=== PATIENT | female | born 1950 | race Caucasian/White ===

== ENCOUNTER 2018-10-11 16:56 | Emergency (ER) | payer MEDICARE, OTHER ==
[~2018-10-11] VITALS: Ht 160 cm; Wt 86.2 kg
[~2018-10-11 16:56] MED LIST: CELEXA 20 MG TA20 M1 PO
[2018-10-11] MEDS ORDERED: MUPIROCIN15 GM TOP (17:42)
[2018-10-11] MEDS ORDERED: KEFLEX500 M1 PO (17:42)
[2018-10-11 18:07] VITALS: BP 133/87
== END 2018-10-11 18:08 | disposition home or self-care (01) ==
LOC: M.ERS 16:56
DX: L02.416 Cutaneous abscess of left lower limb (principal); Z90.49 Acquired absence of other specified parts of digestive tract; Z98.51 Tubal ligation status; Z88.2 Allergy status to sulfonamides